=== PATIENT | male | born 1985 | race African-American/Black ===

== ENCOUNTER 2017-01-28 19:05 | Emergency (ER) | payer OTHER ==
--- NOTE | ~2017-01-28 | CT16 ---
[facility] A Service of [facility] RADIOLOGY TEXT RESULTS PATIENT: MORELIA DIOR LOCATION: [facility] : 81 UNIT #: [id number] AGE: [address]: Lizz Montana MD SEX: M ORDER DR: [id number] [facility]. [place], [place] [address] [id number] E MR#: [id number] Acc #: [id number] NAME: MORELIA DIOR : 1985 SEX: M STUDY DATE/TIME: 01/28/2017 23:54 UNIT: [facility] ROOM: STUDY DESCRIPTION: CT Angio Chest for PE Attending Physician: Lizz Montana M.D. Ordering Physician: Lizz Montana M.D. Primary Care Physician: No Primary Care Physician MEDICAL IMAGING REPORT This report is preliminary unless electronic signature is present EXAM CT chest with pulmonary embolus protocol. INDICATION Chest discomfort since 05:30 yesterday with numbness in both arms, elevated D-dimer. COMPARISON 04/07/2012. TECHNIQUE The patient was given 100 mL of Isovue-370 and spiral imaging was performed through the chest. Dose reduction protocol was utilized. 3-D reconstructions of the pulmonary arteries were generated. This CT exam was performed with one or more of the following radiation dose reduction techniques: Automatic exposure control, adjustment of mA and/or kV according to patient size, and iterative reconstruction. FINDINGS The lungs are clear. The visualized thyroid gland is normal. The aorta is normal in size. The central pulmonary arteries are adequately opacified and there is no CT evidence of pulmonary embolus. IMPRESSION The patient is limited by the patient's large size. No large central emboli are visible. The study is otherwise normal. Dictated by... Luis Miguel Carroll M.D. THIS IS AN ELECTRONICALLY VERIFIED REPORT Luis Miguel Carroll M.D. at 01/29/2017 1:42 PM [facility] A Service [facility] RADIOLOGY TEXT RESULTS PATIENT: MORELIA DIOR LOCATION: [facility] : 81 UNIT #: [id number] AGE: [address]: Lizz Montana MD SEX: M ORDER DR: SERENA/raghav TD: 01/29/2017 13:11 JOB #: [id number] MEDICAL IMAGING REPORT Page 1 of 1 COPY
--- NOTE | ~2017-01-28 | EKG ---
PATIENT: MORELIA DIOR UNIT #: [id number] Ventricular Rate: 115 BPM Atrial Rate: 115 BPM P-R Interval: 182 ms QRS Duration: 84 ms Q-T Interval: 312 ms QTC Calculation(Bezet): 431 ms P Bucks: 55 degrees Calculated R Bucks: 16 degrees Calculated T Bucks: 15 degrees Diagnosis Line: Sinus tachycardia Diagnosis Line: Inferior infarct , age undetermined Diagnosis Line: Cannot rule out Anterior infarct , age Diagnosis Line: undetermined Diagnosis Line: Abnormal ECG Diagnosis Line: When compared with ECG of 17-FEB-2016 05:24, Diagnosis Line: Inferior infarct is now Present Diagnosis Line: Nonspecific T wave abnormality now evident in Diagnosis Line: Lateral leads Diagnosis Line: Confirmed by MOISES PARSONS MD ([id number]) on Diagnosis Line: 01/29/2017 11:09:23 AM INTERPRETING MD: ISSA BRADEN
--- NOTE | ~2017-01-28 | CR72 ---
[facility] A Service of [facility] RADIOLOGY TEXT RESULTS PATIENT: MORELIA DIOR LOCATION: [facility] : 81 UNIT #: [id number] AGE: [address]: Lizz Montana MD SEX: M ORDER DR: [id number] [facility] [address] [place], [place] [address] [id number] E MR#: [id number] Acc #: [id number] NAME: MORELIA DIOR : 1985 SEX: M STUDY DATE/TIME: 01/28/2017 19:35 UNIT: [facility] ROOM: STUDY DESCRIPTION: CR Chest Single View Portable Attending Physician: Lizz Montana M.D. Ordering Physician: Ed Doctor [id number] [facility] Primary Care Physician: Primary Care Physician No MEDICAL IMAGING REPORT This report is preliminary unless electronic signature is present EXAM Single view chest INDICATION Chest pain for 1 day. Numbness radiating into both arms. Hypertension. FINDINGS Single portable AP view of the chest compared to 02/17/2016. Heart and mediastinal contours normal. The lungs are clear. No pleural effusion. IMPRESSION No acute cardiopulmonary findings. Dictated by... Jacob Anderson M.D. THIS IS AN ELECTRONICALLY VERIFIED REPORT Jacob Anderson M.D. at 01/29/2017 3:07 PM Claire TD: 01/29/2017 11:39 JOB #: [id number] MEDICAL IMAGING REPORT Page 1 of 1 COPY
[~2017-01-28 19:05] MED LIST: MEDROL4 MG/DOSE- PO; PROVENTIL0.83 MG/ML IH; ZITHROMAX PO
[2017-01-28 19:53] LABS: BASOPHIL% 0.5 % (0-2.5); EOSINOPHIL# 0.2 X10e3 (0-0.7); EOSINOPHIL% 2.8 % (0.0-7.0); HEMATOCRIT 41.7 % (38.0-50.0); HEMOGLOBIN 13.5 gm/dL (13.0-16.0); LYMPHOCYTE# 2.4 X10e3 (1.0-3.5); LYMPHOCYTE% 30.4 % (17.0-45.0); MEAN CORPUSCULAR HEMOGLOBIN 26.9 PG (28-34); MEAN CORPUSCULAR HGB CONC 32.5 g/dL (30-36); MEAN PLATELET VOLUME 9.8 FL (6.5-11.5); MONOCYTE# 0.5 X10e3 (0-1.0); MONOCYTE% 5.8 % (3.0-12.0); NEUTROPHIL# 4.7 X10e3 (1.5-7.1); NEUTROPHIL% 60.5 % (40-75); PLATELET COUNT 250 X10e3 (140-420); RED BLOOD COUNT 5.03 X10e (3.90-5.60); RED CELL DISTRIBUTION WIDTH 14.9 % (11.0-15.5); WHITE BLOOD COUNT 7.8 X10e3 (4.0-10.5)
[2017-01-28 19:55] LABS: DIFF IND NO
[2017-01-28 19:57] LABS: POC - CKMB 4.1 ng/mL (0.0-7.9); POC - TROPONIN <0.05 ng/mL (<=0.05)
[2017-01-28 20:14] LABS: ALBUMIN SERUM 3.9 g/dL (3.5-5.0); BILIRUBIN, DIRECT 0.1 mg/dL (0.0-0.2); BILIRUBIN,INDIRECT 0.6 mg/dL (0.0-0.9); BILIRUBIN,TOTAL 0.7 mg/dL (0.2-2.0); BUN/CREATININE RATIO 12.5; CALCIUM SERUM 8.8 mg/dL (8.4-10.2); CREATININE SERUM 1.6 mg/dL (0.6-1.4); GLOM FILT RATE Estimated 64.7 mL/min (>60); POTASSIUM 3.8 mmol/L (3.5-5.1); PROTEIN TOTAL SERUM 7.4 g/dL (6.0-8.3)
[2017-01-28 23:05] LABS: POC - CKMB 5.4 ng/mL (0.0-7.9); POC - TROPONIN <0.05 ng/mL (<=0.05)
== END 2017-01-29 01:05 | disposition home or self-care (01) ==
LOC: CED 19:05
PROVIDERS: Student in an Organized Health Care Education/Training Program
DX: R07.89 Other chest pain (principal); I10 Essential (primary) hypertension; J45.909 Unspecified asthma, uncomplicated; F17.200 Nicotine dependence, unspecified, uncomplicated
CPT/HCPCS: 36415; 71010; 71275; 80048; 80076; 82553; 84484; 85025; 85379; 93005; 96361; 96374; 96375; 99285; C9113; G0480; J2405; Q9967